=== PATIENT | male | born 1980 | race African-American/Black ===

== ENCOUNTER 2016-03-14 10:19 | Emergency (ER) | payer SELFPAY ==
[~2016-03-14] VITALS: Ht 177.8 cm; Wt 101.0 kg
[~2016-03-14 10:19] MED LIST: CITA20TA11 PO; DOCU-144 PO; HYDR-3498 PO; MIRT15TA5 PO; PANT40TA3 PO; QUET300T13 PO; SERT100T PO
[2016-03-14 10:35] VITALS: Ht 177.8 cm; Wt 101.0 kg
== END 2016-03-14 13:02 | disposition left against medical advice (07) ==
LOC: FTE 10:19
DX: Z53.21 Procedure and treatment not carried out due to patient leaving prior to being seen by health care provider (principal)

== ENCOUNTER 2016-08-24 12:40 | Inpatient (IN) | payer OTHER ==
[2016-08-23 14:24] VITALS: BMI 31.1
[2016-08-24] VITALS (18 sets, daily range): BP systolic 129–157; BP diastolic 70–89; PULSE 74–102; RESP 16–23; Ht 170.2 cm; Wt 99.0 kg
[~2016-08-24] VITALS: Ht 170.2 cm; Wt 99.0 kg
[2016-08-24] MEDS ORDERED: BUPIVACAINE 0.25% (MPF) 30 ML INJ ONE (12:45)
[2016-08-24] MEDS ORDERED: POLYMYXIN/BACITRACIN 1L IRRIG ONE (12:45)
[2016-08-24] MEDS ORDERED: CEFAZOLIN 2 GM/50 ML (PMX) 50 ML IVPB ONE (13:00)
[2016-08-24] MEDS ORDERED: SOD CHLORIDE 0.9% 1,000 ML IV ONE (13:00)
[2016-08-24] MEDS ORDERED: KETOROLAC 30 MG INJ ONE (13:35)
[2016-08-24] MEDS ORDERED: PROPOFOL 20 ML ONE (13:35)
[2016-08-24] MEDS ORDERED: METOCLOPRAMIDE 10 MG INJ ONE (13:35)
[2016-08-24] MEDS ORDERED: MIDAZOLAM 1 MG/ML 2 ML INJ ONE (13:35)
[2016-08-24] MEDS ORDERED: ONDANSETRON 4 MG INJ ONE (13:35)
[2016-08-24] MEDS ORDERED: ROCURONIUM 50 MG INJ ONE ×2 (13:35→15:33)
[2016-08-24] MEDS ORDERED: ROPIVACAINE 0.5 % 30 ML VIAL ONE (13:35)
[2016-08-24] MEDS ORDERED: GABA-526 PO (13:42)
[2016-08-24] MEDS ORDERED: QUET300T13 PO (13:42)
[2016-08-24] MEDS ORDERED: CLON0.5T4 PO (13:42)
[2016-08-24] MEDS ORDERED: FLUO40CA PO (13:42)
[2016-08-24] MEDS ORDERED: GABA300C16 PO (13:42)
[2016-08-24] MEDS ORDERED: FENTAnyl 50 MCG/ML VIAL ONE (13:50)
[2016-08-24] MEDS ORDERED: EPHEDrine SULFATE 50 MG/5 ML SYG ONE (14:09)
[2016-08-24] MEDS ORDERED: SUCCINYLCHOLINE CHLORIDE 100 MG/5 ML SYG IV ONE (14:23)
[2016-08-24] MEDS ORDERED: HYDROmorphONE 2 MG/ML SYG ONE (14:39)
[2016-08-24] MEDS ORDERED: METOCLOPRAMIDE 10 MG INJ IV PRN (15:00)
[2016-08-24] MEDS ORDERED: DIPHENHYDRAMINE 50 MG INJ IV PRN (15:00)
[2016-08-24] MEDS ORDERED: ONDANSETRON 4 MG INJ IV PRN (15:00)
[2016-08-24] MEDS ORDERED: HYDROmorphONE (0.2 MG/ML) 10ML SYG IV PRN ×2 (15:00)
[2016-08-24] MEDS ORDERED: MEPERIDINE 25 MG INJ IV PRN (15:00)
[2016-08-24] MEDS ORDERED: NEOSTIGMINE 3 MG/3 ML SYRINGE ONE (16:04)
[2016-08-24] MEDS ORDERED: GLYCOPYRROLATE 0.4 MG INJ ONE (16:04)
--- NOTE | 2016-08-24 16:13 | OPR ---
Date/Time of Note Date/Time of Note DATE: 08/24/16 TIME: 16:12 Operative Report Preoperative Diagnosis incarcerated incisional hernia parastomal hernia Postoperative Diagnosis same Operation/Procedure Performed open incisional incarcerated hernia open parastomal hernia repair synthetic mesh implantation biologic mesh implantation small bowel resection Surgeon: Michael WEAVER G. SEONG Aug 24, 2016 16:13
[2016-08-24] MEDS ORDERED: metroNIDAZOLE 500 MG/NS (PMX) 100 ML IVPB SCH (16:30)
[2016-08-24] MEDS ORDERED: morphine 2 MG INJ IV PRN (16:30)
--- NOTE | 2016-08-24 16:40 | OPR ---
DATE OF OPERATION: 08/24/2016 INDICATION: This is a 35-year-old male with a large incarcerated incisional hernia and a large para stomal hernia. He requests surgical repair. The risks, alternatives, benefits, and personnel were discussed with the patient. He expressed understanding and consented to the operation. PREOPERATIVE DIAGNOSIS: Parastomal hernia and incarcerated incisional hernia. POSTOPERATIVE DIAGNOSIS: Parastomal hernia and incarcerated incisional hernia. OPERATION PERFORMED: 1. Open incarcerated incisional hernia repair. 2. Open parastomal hernia repair. 3. Small bowel resection. 4. Synthetic mesh implantation. 5. ACell biologic mesh implantation. SURGEON: Jared Duran MD SPECIMEN: None. COMPLICATIONS: None. ANESTHESIA: General. DESCRIPTION OF PROCEDURE: The patient was taken to the OR and prepped and draped in the usual steri le fashion. A surgical timeout was performed. IV antibiotics were given. An incision was made ove r the midline incisional incarcerated hernia with a 10 blade. The cicatrix was resected with an ell iptical incision. Dissection cautery was down to the hernia. The fascial edges were freshened. Th e large hernia was then identified and reduced. Underlay 15 x [address] mesh was secured in place with #1 Prolene in interrupted fashion. There was good hemostasis. The fascia was then p rimarily closed with a running loop #1 PDS. There was good hemostasis. The skin was closed with int errupted 3-0 Vicryl and the skin was closed with skin kelechi. The wound was then covered. Attention was then paid to the parastomal hernia. The ileostomy was then re-resected down to the [facility]. The parastomal hernia was identified and reduced. The fascial defect was identified. This area was carefully lysed and dissected out. The ACell 6 layer was used with a keyhole incision and this was secured in place with interrupted 2-0 Vicryl. The ileostomy was then matured after resecting a bout 2 inches of the distal ileum, as it appeared scarred. The ileum was then matured with interrup yasmine 3-0 chromic. The small incision superior and inferior made around the stoma was then closed wit h running 2-0 Vicryl. Dry dressings and a stoma bag were placed. Dictated By: JARED DURAN MD SB/SHELLIE Conf#: [id number] [facility]#: [id number]
[2016-08-24] MEDS: HYDROmorphONE (0.2 MG/ML) 10ML SYG IV PRN ×3 (16:55→17:25)
[2016-08-24 16:59] LABS: ADD SCAN DIFF NO
[2016-08-24 17:00] LABS: BASOPHILS % 0.5 % (0.0-2.0); EOSINOPHILS # 0.4 10^3/ul (0.0-0.5); EOSINOPHILS % 4.2 % (0.0-7.0); HEMATOCRIT 40.6 % (42.0-52.0); HEMOGLOBIN 13.4 g/dl (14.0-18.0); LYMPHOCYTES # 1.6 10^3/ul (0.8-2.9); MEAN CORPUSCULAR HEMOGLOBIN 29.3 pg (29.0-33.0); MEAN CORPUSCULAR VOLUME 88.6 fl (82.0-101.0); MEAN PLATELET VOLUME 9.6 fl (7.4-10.4); MONOCYTE # 0.4 10^3/ul (0.3-0.9); MONOCYTES % 4.7 % (0.0-11.0); NEUTROPHIL # 6.3 10^3/ul (1.6-7.5); NEUTROPHILS % 72.1 % (39.0-77.0); PLATELET COUNT 229 10^3/UL (140-415); RED BLOOD COUNT 4.58 10^6/ul (4.70-6.10); RED CELL DISTRIBUTION WIDTH 13.4 % (11.5-14.5); WHITE BLOOD COUNT 8.8 10^3/ul (4.8-10.8)
[2016-08-24] MEDS ORDERED: CEFAZOLIN 2 GM/50 ML (PMX) 50 ML IVPB SCH (17:00)
[2016-08-24 17:39] LABS: ALBUMIN 4.5 g/dl (3.3-4.9); ALBUMIN/GLOBULIN RATIO 1.73; TOTAL PROTEIN 7.1 g/dl (6.1-8.1)
[2016-08-24 17:43] LABS: CALCIUM 8.8 mg/dl (8.4-10.2); CREATININE 1.14 mg/dl (0.61-1.24); POTASSIUM 4.3 mmol/L (3.5-5.1)
[2016-08-24] MEDS: D5W-0.45 NACL + KCL 20 MEQ 1,000 ML IV SCH (18:28)
[2016-08-24] MEDS: DIPHENHYDRAMINE 25 MG CAP PO PRN (18:28)
[2016-08-24] MEDS: morphine 4 MG/ML VIAL IV PRN ×3 (19:15→23:31)
--- NOTE | 2016-08-24 19:29 | HP ---
DATE OF ADMISSION: 08/24/2016 CHIEF COMPLAINT/HISTORY OF PRESENT ILLNESS: The patient is a 35-year-old gentleman well known to me from previous admission. The patient has history of ulcerative colitis status post exploratory lap arotomy and lysis of adhesion, completion of prostatectomy and ileostomy with Dr. Duran. The patient w as seen by Dr. Duran as an outpatient and was diagnosed with large incarcerated incisional hernia and a large parastomal hernia. The patient was taken to OR and underwent open incarcerated incisional h ernia repair, open parastomal hernia repair, small bowel resection. The patient postoperatively had significant pain and is being admitted for further evaluation and management. Patient denied any ch est pain or shortness of breath. No resting leg pain. Patient does not have any focal weakness. N o reported fever or chills since surgery. No reported vomiting. The patient does report itchiness, for which he is requesting Benadryl. PAST MEDICAL HISTORY: The patient's also significant for anxiety and depression. PAST SURGICAL HISTORY: As stated above. In addition, the patient is status post ileostomy reversal and ileorectal anastomosis. ALLERGIES: NONE. SOCIAL HISTORY: No smoking, no alcohol. PHYSICAL EXAMINATION: GENERAL: Found the patient to be alert and responsive. VITAL SIGNS: Temperature 98.4, pulse 74, respirations 20, blood pressure 129/72, O2 saturation 99 o n room air. HEENT: No eye discharge or redness. Extraocular movements intact. Oropharynx clear. NECK: Supple. No mass, no thyromegaly. LUNGS: Clear to auscultation. CARDIOVASCULAR: S1, S2 normal. No murmur. ABDOMEN: The patient is status post recent surgery. EXTREMITIES: No leg edema. Pedal pulses palpable. SKIN: Without rash. NEUROLOGIC: The patient is awake, alert with no gross focal deficit. IMPRESSION: 1. Parastomal hernia and incarcerated incisional hernia status post open incarcerated incisional he rnia repair and opened parastomal hernia repair. 2. History of ulcerative colitis status post exploratory laparotomy and lysis of adhesions, complet ion of proctectomy and ileostomy and subsequently ileostomy reversal with ileorectal anastomosis. 3. Depression. PLAN: Patient admitted on medical floor. Patient will be started on clear liquid diet and will be given IV fluids and IV cefazolin and IV Flagyl. We will continue Prozac, Neurontin, Seroquel and c lonidine as before. Will use SCD for deep venous thrombosis prophylaxis. The patient will be on Nor co and morphine for pain control. We will continue to follow him from a medical standpoint. LABORATORY DATA: Lab evaluation done today revealed WBC 8.8, hemoglobin 13.4, platelet 229, sodium 138, potassium 4.3, BUN 16, creatinine 1.1. Liver enzymes normal. Dictated By: MYLES CLARK/SHELLIE Conf#: [id number] DID#: [id number]
[2016-08-24] MEDS ORDERED: GABAPENTIN 300 MG CAP PO SCH ×2 (21:00)
[2016-08-24] MEDS: metroNIDAZOLE 500 MG/NS (PMX) 100 ML IVPB SCH (21:25)
[2016-08-24] MEDS: clonAZEPAM 0.5 MG TAB PO SCH (21:26)
[2016-08-24] MEDS: GABAPENTIN 300 MG CAP PO SCH (21:26)
[2016-08-24] MEDS: QUETIAPINE 100 MG TAB PO SCH (21:26)
[2016-08-24] MEDS: CEFAZOLIN 2 GM/50 ML (PMX) 50 ML IVPB SCH (23:31)
[2016-08-25 00:20] VITALS: BP 132/78; PULSE 94; RESP 18
[2016-08-25] MEDS: D5W-0.45 NACL + KCL 20 MEQ 1,000 ML IV SCH ×3 (01:37→22:13)
[2016-08-25] MEDS: morphine 4 MG/ML VIAL IV PRN ×4 (03:56→10:28)
[2016-08-25 05:09] LABS: ADD SCAN DIFF NO
[2016-08-25 05:21] LABS: BASOPHILS % 0.3 % (0.0-2.0); EOSINOPHILS # 0.1 10^3/ul (0.0-0.5); EOSINOPHILS % 1.9 % (0.0-7.0); HEMATOCRIT 39.1 % (42.0-52.0); HEMOGLOBIN 12.7 g/dl (14.0-18.0); LYMPHOCYTES # 0.8 10^3/ul (0.8-2.9); LYMPHOCYTES % 11.5 % (15.0-51.0); MEAN CORPUSCULAR HEMOGLOBIN 28.9 pg (29.0-33.0); MEAN CORPUSCULAR HGB CONC 32.5 g/dl (32.0-37.0); MEAN CORPUSCULAR VOLUME 88.9 fl (82.0-101.0); MEAN PLATELET VOLUME 9.6 fl (7.4-10.4); MONOCYTE # 0.5 10^3/ul (0.3-0.9); MONOCYTES % 7.5 % (0.0-11.0); NEUTROPHIL # 5.7 10^3/ul (1.6-7.5); NEUTROPHILS % 78.4 % (39.0-77.0); PLATELET COUNT 217 10^3/UL (140-415); RED CELL DISTRIBUTION WIDTH 13.3 % (11.5-14.5); WHITE BLOOD COUNT 7.2 10^3/ul (4.8-10.8)
[2016-08-25] MEDS: metroNIDAZOLE 500 MG/NS (PMX) 100 ML IVPB SCH ×2 (05:45→14:51)
[2016-08-25 05:46] LABS: ALBUMIN 4.3 g/dl (3.3-4.9); ALBUMIN/GLOBULIN RATIO 1.65; BILIRUBIN,INDIRECT 0.2 mg/dl (0-1.1); BILIRUBIN,TOTAL 0.2 mg/dl (0.2-1.3); CALCIUM 8.7 mg/dl (8.4-10.2); CREATININE 0.96 mg/dl (0.61-1.24); POTASSIUM 3.8 mmol/L (3.5-5.1); TOTAL PROTEIN 6.9 g/dl (6.1-8.1)
[2016-08-25] MEDS: CEFAZOLIN 2 GM/50 ML (PMX) 50 ML IVPB SCH ×2 (06:55→14:51)
[2016-08-25 08:15] VITALS: BP 118/66; RESP 20
[2016-08-25] MEDS: clonAZEPAM 0.5 MG TAB PO SCH ×2 (08:31→20:44)
[2016-08-25] MEDS: GABAPENTIN 300 MG CAP PO SCH ×4 (08:31→20:45)
[2016-08-25] MEDS: FLUOXETINE 20 MG CAP PO SCH (08:31)
[2016-08-25 12:00] VITALS: BP 122/72; PULSE 89; RESP 17
[2016-08-25] MEDS: HYDROmorphONE 1 MG/ML SYG IV PRN ×4 (12:03→22:42)
--- NOTE | 2016-08-25 12:31 | PN ---
Date/Time of Note Date/Time of Note DATE: 08/25/16 TIME: 12:30 Assessment/Plan VTE Prophylaxis VTE Prophylaxis Intervention: other Lines/Catheters IV Catheter Type (from Nrs): Peripheral IV Assessment/Plan Chief Complaint/Hosp Course 1. Parastomal hernia and incarcerated incisional hernia status post open incarcerated incisional hernia repair and opened parastomal hernia repair. 2. History of ulcerative colitis status post exploratory laparotomy and lysis of adhesions, completion of proctectomy and ileostomy and subsequently ileostomy reversal with ileorectal anastomosis. 3. Depression. Problems: Subjective 24 Hr Interval Summary Free Text/Dictation Patient still has a fair amount of pain Exam/Review of Systems Vital Signs Vitals Vital Signs Date Time Temp Pulse Resp B/P Pulse Ox O2 Delivery O2 Flow Rate FiO2 08/25/16 08:15 98.2 86 20 118/66 98 08/25/16 00:20 Nasal Cannula 2.0 Intake and Output 08/24/16 08/24/16 08/25/16 15:00 23:00 07:00 Intake Total 1800 ml 1700 ml Output Total 170 ml 800 ml Balance 1630 ml 900 ml Exam Constitutional: well developed Head: atraumatic, normocephalic Neck: supple Respiratory: clear to auscultation Cardiovascular: regular rate and rhythm Gastrointestinal: non-tender, soft Extremities: normal pulses Results Result Diagram: 08/25/16 0420 08/25/16 0420 Results 24 hrs Laboratory Tests Test 08/24/16 16:45 08/25/16 04:20 White Blood Count 8.8 7.2 Red Blood Count 4.58 L 4.40 L Hemoglobin 13.4 L 12.7 L Hematocrit 40.6 L 39.1 L Mean Corpuscular Volume 88.6 88.9 Mean Corpuscular Hemoglobin 29.3 28.9 L Mean Corpuscular Hemoglobin Concent 33.0 32.5 Red Cell Distribution Width 13.4 13.3 Platelet Count 229 217 Mean Platelet Volume 9.6 # 9.6 Neutrophils % 72.1 78.4 H Lymphocytes % 18.0 11.5 L Monocytes % 4.7 7.5 Eosinophils % 4.2 1.9 Basophils % 0.5 0.3 Nucleated Red Blood Cells % 0.0 0.0 Neutrophils # 6.3 5.7 Lymphocytes # 1.6 0.8 Monocytes # 0.4 0.5 Eosinophils # 0.4 0.1 Basophils # 0.0 0.0 Nucleated Red Blood Cells # 0.0 0.0 Sodium Level 138 137 Potassium Level 4.3 3.8 Chloride Level 108 104 Carbon Dioxide Level 22 23 Anion Gap 12 14 Blood Urea Nitrogen 16 12 Creatinine 1.14 0.96 Glucose Level 112 111 Calcium Level 8.8 8.7 Total Bilirubin 0.0 L 0.2 Direct Bilirubin 0.00 0.00 Indirect Bilirubin 0.0 0.2 Aspartate Amino Transf (AST/SGOT) 29 26 Alanine Aminotransferase (ALT/SGPT) 51 49 Alkaline Phosphatase 78 63 Total Protein 7.1 6.9 Albumin 4.5 4.3 Globulin 2.60 2.60 Albumin/Globulin Ratio 1.73 1.65 Medications Medications Current Medications Acetaminophen/ Hydrocodone Bitart 1 tab 1 tab Q6H PRN PO PAIN LEVEL 6-10; Start 08/24/16 at 16:30 Potassium Chloride/Dextrose/ Sod Cl 1,000 ml @ 100 mls/hr Q10H IV Last administered on 08/25/16 01:37; Admin Dose 100 MLS/HR; Start 08/24/16 at 16:13 Metronidazole 100 ml @ 100 mls/hr Q8H IVPB Last administered on 08/25/16 05: 45; Admin Dose 100 MLS/HR; Start 08/24/16 at 22:00; Stop 08/25/16 at 21:59 Cefazolin Sodium/ Dextrose (Ancef 2 Gm/50 ml (Pmx)) 50 ml @ 100 mls/hr Q8H IVPB Last administered on 08/25/16 06:55; Admin Dose 100 MLS/HR; Start at 23:00; Stop 08/25/16 at 22:59 Clonazepam (Klonopin) 0.5 mg BID PO Last administered on 08/25/16 08:31; Admin Dose 0.5 MG; Start 08/24/16 at 21:00 Fluoxetine HCl (Prozac) 40 mg DAILY PO Last administered on 08/25/16 08:31; Admin Dose 40 MG; Start 08/25/16 at 09:00 Quetiapine Fumarate (Seroquel) 300 mg HS PO Last administered on 08/24/16 21: 26; Admin Dose 300 MG; Start 08/24/16 at 21:00 Diphenhydramine HCl (Benadryl) 25 mg Q6H PRN PO ITCHING Last administered on 18:28; Admin Dose 25 MG; Start 08/24/16 at 18:30 Gabapentin (Neurontin) 300 mg QID PO Last administered on 08/25/16 08:31; Admin Dose 300 MG; Start 08/24/16 at 21:00 Hydromorphone HCl (Dilaudid) 1 mg Q4H PRN IV PAIN Last administered on 12:03; Admin Dose 1 MG; Start 08/25/16 at 12:00 JUANITA EASON Aug 25, 2016 12:31
[2016-08-25] MEDS: ONDANSETRON 4 MG INJ IV PRN (14:45)
--- NOTE | 2016-08-25 16:14 | PN ---
DATE: 08/25/2016 FOLLOWUP Postoperative day #1. SUBJECTIVE: Complains of abdominal pain too much and some distention. Today is postop day #1. The procedure was: 1. Repair of incarcerated incisional ventral hernia. 2. Repair of the parastomal hernia. OBJECTIVE: GENERAL: Awake, alert, oriented x3. VITAL SIGNS: Temperature 98.2, heart rate 94 to 86, respirations 18 to 20, blood pressure 118/66, saturation 98% on room air. LABORATORY: WBC 7200 with 78% segmented, hemoglobin 12.7, hematocrit 39.1. Chemistry is within normal limits today. ABDOMEN: Very distended. Bowel sounds present. Ileostomy: There is some liquid greenish fluid in the ileostomy bag. No nausea, no vomiting. EXTREMITIES: No calf tenderness. ASSESSMENT AND PLAN: The patient is postoperative day #1 for operation of incisional hernia repair with mesh and also application of mesh for the parastomal hernia at the site of ileostomy. Apparently the morphine was not enough to help the patient with pain, so it was discontinued and Dilaudid was started for the patient. The patient has been out of bed a little bit and has been urinating without a problem. PLAN: Continue Dilaudid, If he continues to have more pain they are going to start him on Toradol. Dictated By: MYLENE GRECO/SHELLIE Conf#: [id number] DID#: [id number] MTDD
[2016-08-25] MEDS: HYDROCODONE/APAP (5/325) TAB PO PRN (17:22)
[2016-08-25 19:22] VITALS: BP 142/96; RESP 22
[2016-08-25] MEDS: QUETIAPINE 100 MG TAB PO SCH (20:43)
[2016-08-26] MEDS: HYDROmorphONE 1 MG/ML SYG IV PRN ×7 (01:17→22:44)
[2016-08-26] MEDS: DIPHENHYDRAMINE 25 MG CAP PO PRN (02:18)
[2016-08-26] MEDS: HYDROCODONE/APAP (5/325) TAB PO PRN ×3 (02:18→15:03)
[2016-08-26] MEDS: D5W-0.45 NACL + KCL 20 MEQ 1,000 ML IV SCH (06:06)
[2016-08-26 08:05] VITALS: BP 111/66; RESP 22
[2016-08-26] MEDS: GABAPENTIN 300 MG CAP PO SCH ×4 (08:15→20:16)
[2016-08-26] MEDS: clonAZEPAM 0.5 MG TAB PO SCH ×2 (08:15→20:16)
[2016-08-26] MEDS: FLUOXETINE 20 MG CAP PO SCH (08:16)
--- NOTE | 2016-08-26 12:26 | PN ---
Date/Time of Note Date/Time of Note DATE: 08/26/16 TIME: 12:25 Assessment/Plan VTE Prophylaxis VTE Prophylaxis Intervention: other Lines/Catheters IV Catheter Type (from Nrsg): Peripheral IV Assessment/Plan Chief Complaint/Hosp Course 1. Parastomal hernia and incarcerated incisional hernia status post open incarcerated incisional hernia repair and opened parastomal hernia repair. 2. History of ulcerative colitis status post exploratory laparotomy and lysis of adhesions, completion of proctectomy and ileostomy and subsequently ileostomy reversal with ileorectal anastomosis. 3. Depression. Problems: Subjective 24 Hr Interval Summary Free Text/Dictation Patient has pain at site of surgery Exam/Review of Systems Vital Signs Vitals Vital Signs Date Time Temp Pulse Resp B/P Pulse Ox O2 Delivery O2 Flow Rate FiO2 08/26/16 08:05 98.1 98 22 111/66 100 08/25/16 12:00 Room Air 08/25/16 00:20 2.0 Intake and Output 08/25/16 08/25/16 08/26/16 15:00 23:00 07:00 Intake Total 50 ml 1750 ml 2020 ml Output Total 1300 ml 700 ml Balance 50 ml 450 ml 1320 ml Exam Constitutional: well developed Head: atraumatic, normocephalic Neck: supple Respiratory: clear to auscultation Cardiovascular: regular rate and rhythm Gastrointestinal: non-tender, soft Extremities: normal pulses Results Result Diagram: 08/25/16 0420 08/25/16 0420 Results 24 hrs Laboratory Tests Test 08/26/16 06:41 Lab Scanned Report REFERENCE LAB Medications Medications Current Medications Acetaminophen/ Hydrocodone Bitart 1 tab 1 tab Q6H PRN PO PAIN LEVEL 6-10 Last administered on 08/26/16 08:16; Admin Dose 1 TAB; Start 08/24/16 at 16:30 Potassium Chloride/Dextrose/ Sod Cl (D5-1/2ns + KCl 20 Meq) 1,000 ml @ 100 mls/ hr Q10H IV Last administered on 08/26/16 06:06; Admin Dose 100 MLS/HR; Start 08/24/16 at 16:13 Clonazepam (Klonopin) 0.5 mg BID PO Last administered on 08/26/16 08:15; Admin Dose 0.5 MG; Start 08/24/16 at 21:00 Fluoxetine HCl (Prozac) 40 mg DAILY PO Last administered on 08/26/16 08:16; Admin Dose 40 MG; Start 08/25/16 at 09:00 Quetiapine Fumarate (Seroquel) 300 mg HS PO Last administered on 08/25/16 20: 43; Admin Dose 300 MG; Start 08/24/16 at 21:00 Diphenhydramine HCl (Benadryl) 25 mg Q6H PRN PO ITCHING Last administered on 02:18; Admin Dose 25 MG; Start 08/24/16 at 18:30 Gabapentin (Neurontin) 300 mg QID PO Last administered on 08/26/16 08:15; Admin Dose 300 MG; Start 08/24/16 at 21:00 Ondansetron HCl (Zofran Inj) 4 mg Q6H PRN IV NAUSEA AND/OR VOMITING Last administered on 08/25/16 14:45; Admin Dose 4 MG; Start 08/25/16 at 15:00 Hydromorphone HCl (Dilaudid) 1 mg Q3 PRN IV PAIN Last administered on 10:45; Admin Dose 1 MG; Start 08/25/16 at 22:00 JUANITA EASON Aug 26, 2016 12:26
[2016-08-26] MEDS ORDERED: KETOROLAC 30 MG INJ IV PRN (15:30)
[2016-08-26 20:09] VITALS: BP 140/92; RESP 18
[2016-08-26] MEDS: QUETIAPINE 100 MG TAB PO SCH (20:28)
[2016-08-26] MEDS: ONDANSETRON 4 MG INJ IV PRN (22:44)
[2016-08-26] MEDS: KETOROLAC 30 MG INJ IV SCH (23:10)
[2016-08-27] MEDS: HYDROmorphONE 1 MG/ML SYG IV PRN ×8 (01:36→21:45)
[2016-08-27] MEDS: KETOROLAC 30 MG INJ IV SCH ×2 (04:34→08:14)
[2016-08-27 05:23] LABS: ADD SCAN DIFF NO
[2016-08-27 05:27] LABS: BASOPHILS % 0.3 % (0.0-2.0); EOSINOPHILS # 0.3 10^3/ul (0.0-0.5); EOSINOPHILS % 3.9 % (0.0-7.0); HEMATOCRIT 36.7 % (42.0-52.0); HEMOGLOBIN 12.4 g/dl (14.0-18.0); LYMPHOCYTES # 1.5 10^3/ul (0.8-2.9); MEAN CORPUSCULAR HEMOGLOBIN 29.8 pg (29.0-33.0); MEAN CORPUSCULAR HGB CONC 33.8 g/dl (32.0-37.0); MEAN CORPUSCULAR VOLUME 88.2 fl (82.0-101.0); MEAN PLATELET VOLUME 9.8 fl (7.4-10.4); MONOCYTE # 0.6 10^3/ul (0.3-0.9); MONOCYTES % 7.9 % (0.0-11.0); NEUTROPHIL # 4.5 10^3/ul (1.6-7.5); NEUTROPHILS % 65.6 % (39.0-77.0); PLATELET COUNT 226 10^3/UL (140-415); RED BLOOD COUNT 4.16 10^6/ul (4.70-6.10); RED CELL DISTRIBUTION WIDTH 13.3 % (11.5-14.5); WHITE BLOOD COUNT 6.9 10^3/ul (4.8-10.8)
--- NOTE | 2016-08-27 07:40 | PN ---
DATE: 08/26/2016 Status post repair of the incisional hernia and also repair of the parastomal hernia. SUBJECTIVE: Patient complaining of too much pain in the right side. but is not associated with nausea and vomiting. OBJECTIVE: VITAL SIGNS: Temperature 98.1, heart rate 88, respirations 22, blood pressure 101/66, saturation 100% on room air. LABORATORY: No labs done today. GENERAL: The patient is alert and awake. ABDOMEN: Appears very distended. Bowel is a little bit hypoactive 2+/4+, but the ileostomy is functioning. There is liquid stool and also formed stool, patient is tender around the incision lines. EXTREMITIES: Legs, no calf tenderness. ASSESSMENT AND PLAN: Status post laparotomy and repair of the ventral incisional hernia with mesh and parastomal hernia with mesh. Ileostomy is functioning. The patient does not have any nausea or vomiting and is tolerating diet so far, complaining of too much pain. PLAN: Patient is on Dilaudid every 3 hours. We are going to add Toradol 30 mg IV q.6h. around the clock to help ease off the pain. Dictated By: MYLENE TRAN MD PS/NTS Conf#: [id number] DID#: [id number] MTDD
[2016-08-27] MEDS: GABAPENTIN 300 MG CAP PO SCH ×4 (08:12→20:45)
[2016-08-27] MEDS: clonAZEPAM 0.5 MG TAB PO SCH ×2 (08:12→20:45)
[2016-08-27] MEDS: FLUOXETINE 20 MG CAP PO SCH (08:13)
[2016-08-27] MEDS: DIPHENHYDRAMINE 25 MG CAP PO PRN ×2 (08:13→18:56)
[2016-08-27 08:45] VITALS: BP 108/78; RESP 18
[2016-08-27] MEDS: HYDROCODONE/APAP (5/325) TAB PO PRN (08:55)
--- NOTE | 2016-08-27 09:24 | PN ---
Date/Time of Note Date/Time of Note DATE: 08/27/16 TIME: 09:21 Assessment/Plan VTE Prophylaxis VTE Prophylaxis Intervention: SCD's Lines/Catheters IV Catheter Type (from Nrsg): Saline Lock Urinary Cath still in place: No Assessment/Plan Chief Complaint/Hosp Course s/p open incisional hernia repair with mesh and parastomal hernia repair with biologic Problems: Assessment/Plan continue care Subjective 24 Hr Interval Summary Free Text/Dictation no issues, low grade fever Exam/Review of Systems Vital Signs Vitals Vital Signs Date Time Temp Pulse Resp B/P Pulse Ox O2 Delivery O2 Flow Rate FiO2 08/27/16 08:45 97.7 108 18 108/78 97 08/25/16 12:00 Room Air 08/25/16 00:20 2.0 Intake and Output 08/26/16 08/26/16 08/27/16 15:00 23:00 07:00 Intake Total 1900 ml 1080 ml Output Total 1900 ml 1950 ml Balance 0 ml -870 ml Exam c/d/i Results Result Diagram: 08/27/16 0453 08/25/16 0420 Results 24 hrs Laboratory Tests Test 08/27/16 04:53 White Blood Count 6.9 Red Blood Count 4.16 L Hemoglobin 12.4 L Hematocrit 36.7 L Mean Corpuscular Volume 88.2 Mean Corpuscular Hemoglobin 29.8 Mean Corpuscular Hemoglobin Concent 33.8 Red Cell Distribution Width 13.3 Platelet Count 226 Mean Platelet Volume 9.8 Neutrophils % 65.6 Lymphocytes % 22.0 Monocytes % 7.9 Eosinophils % 3.9 Basophils % 0.3 Nucleated Red Blood Cells % 0.0 Neutrophils # 4.5 Lymphocytes # 1.5 Monocytes # 0.6 Eosinophils # 0.3 Basophils # 0.0 Nucleated Red Blood Cells # 0.0 Medications Medications Current Medications Acetaminophen/ Hydrocodone Bitart ([place] (5/325)) 1 tab Q6H PRN PO PAIN LEVEL 6 -10 Last administered on 08/27/16 08:55; Admin Dose 1 TAB; Start 08/24/16 at 16 :30 Clonazepam (Klonopin) 0.5 mg BID PO Last administered on 08/27/16 08:12; Admin Dose 0.5 MG; Start 08/24/16 at 21:00 Fluoxetine HCl (Prozac) 40 mg DAILY PO Last administered on 08/27/16 08:13; Admin Dose 40 MG; Start 08/25/16 at 09:00 Quetiapine Fumarate (Seroquel) 300 mg HS PO Last administered on 08/26/16 20: 28; Admin Dose 300 MG; Start 08/24/16 at 21:00 Diphenhydramine HCl (Benadryl) 25 mg Q6H PRN PO ITCHING Last administered on 08:13; Admin Dose 25 MG; Start 08/24/16 at 18:30 Gabapentin (Neurontin) 300 mg QID PO Last administered on 08/27/16 08:12; Admin Dose 300 MG; Start 08/24/16 at 21:00 Ondansetron HCl (Zofran Inj) 4 mg Q6H PRN IV NAUSEA AND/OR VOMITING Last administered on 08/26/16 22:44; Admin Dose 4 MG; Start 08/25/16 at 15:00 Hydromorphone HCl (Dilaudid) 1 mg Q3 PRN IV PAIN Last administered on 06:36; Admin Dose 1 MG; Start 08/25/16 at 22:00 Ketorolac Tromethamine (Toradol) 30 mg Q6H IV Last administered on 08/27/16 08 :14; Admin Dose 30 MG; Start 08/26/16 at 21:30; Stop 08/29/16 at 21:29 Michael WEAVER Aug 27, 2016 09:24
[2016-08-27] MEDS: HYDROCODONE/APAP (10/325) TAB PO PRN ×2 (14:54→20:46)
--- NOTE | 2016-08-27 17:07 | PN ---
Date/Time of Note Date/Time of Note DATE: 08/27/16 TIME: 17:04 Assessment/Plan VTE Prophylaxis VTE Prophylaxis Intervention: SCD's Lines/Catheters IV [facility] Type [facility]from [facility] Saline Lock Urinary Cath still in place: No Assessment/Plan Chief Complaint/Hosp Course pt tolerates diet well, denies N/V, complains of abd pain. Problems: Assessment/Plan 1. Parastomal hernia and incarcerated incisional hernia status post open incarcerated incisional hernia repair and opened parastomal hernia repair. Continue Sun and Dilaudid for pain. Advance diet per surgery. 2. History of ulcerative colitis status post exploratory laparotomy and lysis of adhesions, completion of proctectomy and end ileostomy. 3. Depression. Further recommendations based on clinical course. Plan of care discussed with Dr. Coley. Exam/Review of Systems Vital Signs Vitals Vital Signs Date Time Temp Pulse Resp B/P Pulse Ox O2 Delivery O2 Flow Rate FiO2 08/27/16 08:45 97.7 108 18 108/78 97 08/25/16 12:00 Room Air 08/25/16 00:20 2.0 Intake and Output 08/26/16 08/26/16 08/27/16 15:00 23:00 07:00 Intake Total 1900 ml 1080 ml Output Total 1900 ml 1950 ml Balance 0 ml -870 ml Exam Constitutional: alert, oriented Head: normocephalic Neck: supple Respiratory: normal air movement Cardiovascular: nl pulses Gastrointestinal: non-tender, other (colostomy, surgical incision), soft Extremities: normal pulses Neurological: nl mental status Skin: nl turgor Results Result Diagram: 08/27/16 0453 08/25/16 0420 Results 24 hrs Laboratory Tests Test 08/27/16 04:53 White Blood Count 6.9 Red Blood Count 4.16 L Hemoglobin 12.4 L Hematocrit 36.7 L Mean Corpuscular Volume 88.2 Mean Corpuscular Hemoglobin 29.8 Mean Corpuscular Hemoglobin Concent 33.8 Red Cell Distribution Width 13.3 Platelet Count 226 Mean Platelet Volume 9.8 Neutrophils % 65.6 Lymphocytes % 22.0 Monocytes % 7.9 Eosinophils % 3.9 Basophils % 0.3 Nucleated Red Blood Cells % 0.0 Neutrophils # 4.5 Lymphocytes # 1.5 Monocytes # 0.6 Eosinophils # 0.3 Basophils # 0.0 Nucleated Red Blood Cells # 0.0 Medications Medications Current Medications Clonazepam (Klonopin) 0.5 mg BID PO Last administered on 08/27/16 08:12; Admin Dose 0.5 MG; Start 08/24/16 at 21:00 Fluoxetine HCl (Prozac) 40 mg DAILY PO Last administered on 08/27/16 08:13; Admin Dose 40 MG; Start 08/25/16 at 09:00 Quetiapine Fumarate (Seroquel) 300 mg HS PO Last administered on 08/26/16 20: 28; Admin Dose 300 MG; Start 08/24/16 at 21:00 Diphenhydramine HCl (Benadryl) 25 mg Q6H PRN PO ITCHING Last administered on 08:13; Admin Dose 25 MG; Start 08/24/16 at 18:30 Gabapentin (Neurontin) 300 mg QID PO Last administered on 08/27/16 12:33; Admin Dose 300 MG; Start 08/24/16 at 21:00 Ondansetron HCl (Zofran Inj) 4 mg Q6H PRN IV NAUSEA AND/OR VOMITING Last administered on 08/26/16 22:44; Admin Dose 4 MG; Start 08/25/16 at 15:00 Hydromorphone HCl (Dilaudid) 1 mg Q3 PRN IV PAIN Last administered on 15:47; Admin Dose 1 MG; Start 08/25/16 at 22:00 Acetaminophen/ Hydrocodone Bitart ([place] (10/325)) 1 tab Q6H PRN PO PAIN Last administered on 08/27/16 14:54; Admin Dose 1 TAB; Start 08/27/16 at 09:30 ROSALIND ESPINAL Aug 27, 2016 17:07
[2016-08-27 19:51] VITALS: BP 132/85; RESP 20
[2016-08-27] MEDS: QUETIAPINE 100 MG TAB PO SCH (20:45)
[2016-08-28] MEDS: HYDROmorphONE 1 MG/ML SYG IV PRN ×7 (00:42→21:06)
[2016-08-28] MEDS: HYDROCODONE/APAP (10/325) TAB PO PRN ×4 (02:42→21:24)
[2016-08-28 05:20] LABS: ADD SCAN DIFF NO
[2016-08-28 05:21] LABS: BASOPHILS % 0.5 % (0.0-2.0); EOSINOPHILS # 0.7 10^3/ul (0.0-0.5); HEMATOCRIT 34.9 % (42.0-52.0); HEMOGLOBIN 11.9 g/dl (14.0-18.0); LYMPHOCYTES # 1.9 10^3/ul (0.8-2.9); LYMPHOCYTES % 29.5 % (15.0-51.0); MEAN CORPUSCULAR HGB CONC 34.1 g/dl (32.0-37.0); MEAN CORPUSCULAR VOLUME 87.9 fl (82.0-101.0); MEAN PLATELET VOLUME 9.3 fl (7.4-10.4); MONOCYTE # 0.6 10^3/ul (0.3-0.9); MONOCYTES % 8.6 % (0.0-11.0); NEUTROPHIL # 3.3 10^3/ul (1.6-7.5); NEUTROPHILS % 51.1 % (39.0-77.0); PLATELET COUNT 238 10^3/UL (140-415); RED BLOOD COUNT 3.97 10^6/ul (4.70-6.10); RED CELL DISTRIBUTION WIDTH 13.1 % (11.5-14.5); WHITE BLOOD COUNT 6.5 10^3/ul (4.8-10.8)
[2016-08-28 05:51] LABS: CALCIUM 8.5 mg/dl (8.4-10.2); CREATININE 1.02 mg/dl (0.61-1.24); POTASSIUM 3.9 mmol/L (3.5-5.1)
[2016-08-28 08:25] VITALS: BP 132/77; RESP 20
[2016-08-28] MEDS: FLUOXETINE 20 MG CAP PO SCH (09:05)
[2016-08-28] MEDS: clonAZEPAM 0.5 MG TAB PO SCH ×2 (09:06→20:40)
[2016-08-28] MEDS: GABAPENTIN 300 MG CAP PO SCH ×4 (09:06→20:40)
[2016-08-28] MEDS: DIPHENHYDRAMINE 25 MG CAP PO PRN (10:36)
--- NOTE | 2016-08-28 13:38 | PN ---
Date/Time of Note Date/Time of Note DATE: 08/28/16 TIME: 13:35 Assessment/Plan VTE Prophylaxis VTE Prophylaxis Intervention: SCD's Lines/Catheters IV Catheter Type (from [facility]): Saline Lock Urinary Cath still in place: No Assessment/Plan Chief Complaint/Hosp Course s/p open incisional hernia repair with mesh and parastomal hernia repair with biologic Problems: Assessment/Plan dc home tomorrow Subjective 24 Hr Interval Summary Free Text/Dictation doing well, no issues Exam/Review of Systems Vital Signs Vitals Vital Signs Date Time Temp Pulse Resp B/P Pulse Ox O2 Delivery O2 Flow Rate FiO2 08/28/16 08:25 98.3 92 20 132/77 96 08/25/16 12:00 Room Air 08/25/16 00:20 2.0 Intake and Output 08/27/16 08/27/16 08/28/16 15:00 23:00 07:00 Intake Total 960 ml 1100 ml Output Total 400 ml Balance 560 ml 1100 ml Exam c/d/i Results Result Diagram: 08/28/16 0440 08/28/16 0440 Results 24 hrs Laboratory Tests Test 08/28/16 04:40 White Blood Count 6.5 Red Blood Count 3.97 L Hemoglobin 11.9 L Hematocrit 34.9 L Mean Corpuscular Volume 87.9 Mean Corpuscular Hemoglobin 30.0 Mean Corpuscular Hemoglobin Concent 34.1 Red Cell Distribution Width 13.1 Platelet Count 238 Mean Platelet Volume 9.3 Neutrophils % 51.1 Lymphocytes % 29.5 Monocytes % 8.6 Eosinophils % 10.0 H Basophils % 0.5 Nucleated Red Blood Cells % 0.0 Neutrophils # 3.3 Lymphocytes # 1.9 Monocytes # 0.6 Eosinophils # 0.7 H Basophils # 0.0 Nucleated Red Blood Cells # 0.0 Sodium Level 136 Potassium Level 3.9 Chloride Level 104 Carbon Dioxide Level 25 Anion Gap 11 Blood Urea Nitrogen 14 Creatinine 1.02 Glucose Level 91 Calcium Level 8.5 Medications Medications Current Medications Clonazepam (Klonopin) 0.5 mg BID PO Last administered on 08/28/16 09:06; Admin Dose 0.5 MG; Start 08/24/16 at 21:00 Fluoxetine HCl (Prozac) 40 mg DAILY PO Last administered on 08/28/16 09:05; Admin Dose 40 MG; Start 08/25/16 at 09:00 Quetiapine Fumarate (Seroquel) 300 mg HS PO Last administered on 08/27/16 20: 45; Admin Dose 300 MG; Start 08/24/16 at 21:00 Diphenhydramine HCl (Benadryl) 25 mg Q6H PRN PO ITCHING Last administered on 10:36; Admin Dose 25 MG; Start 08/24/16 at 18:30 Gabapentin (Neurontin) 300 mg QID PO Last administered on 08/28/16 09:06; Admin Dose 300 MG; Start 08/24/16 at 21:00 Ondansetron HCl (Zofran Inj) 4 mg Q6H PRN IV NAUSEA AND/OR VOMITING Last administered on 08/26/16 22:44; Admin Dose 4 MG; Start 08/25/16 at 15:00 Hydromorphone HCl (Dilaudid) 1 mg Q3 PRN IV PAIN Last administered on 12:56; Admin Dose 1 MG; Start 08/25/16 at 22:00 Acetaminophen/ Hydrocodone Bitart ([place] (10/325)) 1 tab Q6H PRN PO PAIN Last administered on 08/28/16 09:06; Admin Dose 1 TAB; Start 08/27/16 at 09:30 Michael WEAVER Aug 28, 2016 13:38
--- NOTE | 2016-08-28 13:50 | PN ---
Date/Time of Note Date/Time of Note DATE: 08/28/16 TIME: 13:46 Assessment/Plan VTE Prophylaxis VTE Prophylaxis Intervention: SCD's Lines/Catheters IV [facility]ter [facility]from [facility] Lock Urinary Cath still in place: No Assessment/Plan Chief Complaint/Hosp Course Patient's complains of abdominal pain requiring IV Dilaudid, no nausea vomiting. Assessment/Plan 1. Parastomal hernia and incarcerated incisional hernia, status post open incarcerated incisional hernia repair and opened parastomal hernia repair. 2. History of ulcerative colitis status post exploratory laparotomy and lysis of adhesions, completion of proctectomy and end ileostomy. 3. Depression. Continue Prozac. Further recommendations based on clinical course. Plan of care discussed with Dr. Coley. Problems: Exam/Review of Systems Vital Signs Vitals Vital Signs Date Time Temp Pulse Resp B/P Pulse Ox O2 Delivery O2 Flow Rate FiO2 08/28/16 08:25 98.3 92 20 132/77 96 08/25/16 12:00 Room Air 08/25/16 00:20 2.0 Intake and Output 08/27/16 08/27/16 08/28/16 15:00 23:00 07:00 Intake Total 960 ml 1100 ml Output Total 400 ml Balance 560 ml 1100 ml Exam Constitutional: alert, oriented Head: normocephalic Neck: supple Respiratory: normal air movement Cardiovascular: nl pulses Gastrointestinal: non-tender, other (colostomy, surgical incision), soft Extremities: normal pulses Neurological: nl mental status Skin: nl turgor Results Result Diagram: 08/28/16 0440 08/28/16 0440 Results 24 hrs Laboratory Tests Test 08/28/16 04:40 White Blood Count 6.5 Red Blood Count 3.97 L Hemoglobin 11.9 L Hematocrit 34.9 L Mean Corpuscular Volume 87.9 Mean Corpuscular Hemoglobin 30.0 Mean Corpuscular Hemoglobin Concent 34.1 Red Cell Distribution Width 13.1 Platelet Count 238 Mean Platelet Volume 9.3 Neutrophils % 51.1 Lymphocytes % 29.5 Monocytes % 8.6 Eosinophils % 10.0 H Basophils % 0.5 Nucleated Red Blood Cells % 0.0 Neutrophils # 3.3 Lymphocytes # 1.9 Monocytes # 0.6 Eosinophils # 0.7 H Basophils # 0.0 Nucleated Red Blood Cells # 0.0 Sodium Level 136 Potassium Level 3.9 Chloride Level 104 Carbon Dioxide Level 25 Anion Gap 11 Blood Urea Nitrogen 14 Creatinine 1.02 Glucose Level 91 Calcium Level 8.5 Medications Medications Current Medications Clonazepam (Klonopin) 0.5 mg BID PO Last administered on 08/28/16 09:06; Admin Dose 0.5 MG; Start 08/24/16 at 21:00 Fluoxetine HCl (Prozac) 40 mg DAILY PO Last administered on 08/28/16 09:05; Admin Dose 40 MG; Start 08/25/16 at 09:00 Quetiapine Fumarate (Seroquel) 300 mg HS PO Last administered on 08/27/16 20: 45; Admin Dose 300 MG; Start 08/24/16 at 21:00 Diphenhydramine HCl (Benadryl) 25 mg Q6H PRN PO ITCHING Last administered on 10:36; Admin Dose 25 MG; Start 08/24/16 at 18:30 Gabapentin (Neurontin) 300 mg QID PO Last administered on 08/28/16 09:06; Admin Dose 300 MG; Start 08/24/16 at 21:00 Ondansetron HCl (Zofran Inj) 4 mg Q6H PRN IV NAUSEA AND/OR VOMITING Last administered on 08/26/16 22:44; Admin Dose 4 MG; Start 08/25/16 at 15:00 Hydromorphone HCl (Dilaudid) 1 mg Q3 PRN IV PAIN Last administered on 12:56; Admin Dose 1 MG; Start 08/25/16 at 22:00 Acetaminophen/ Hydrocodone Bitart ([place] (10/325)) 1 tab Q6H PRN PO PAIN Last administered on 08/28/16 09:06; Admin Dose 1 TAB; Start 08/27/16 at 09:30 ROSALIND ESPINAL Aug 28, 2016 13:50 ROSALIND ESPINAL Aug 28, 2016 13:50
[2016-08-28] MEDS: ONDANSETRON 4 MG INJ IV PRN ×2 (15:22→21:23)
[2016-08-28] MEDS: QUETIAPINE 100 MG TAB PO SCH (20:40)
[2016-08-28 21:20] VITALS: BP 148/94; RESP 19
[2016-08-29] MEDS: HYDROmorphONE 1 MG/ML SYG IV PRN ×5 (00:01→14:15)
[2016-08-29] MEDS: HYDROCODONE/APAP (10/325) TAB PO PRN ×3 (03:22→15:57)
[2016-08-29] MEDS: ONDANSETRON 4 MG INJ IV PRN (03:22)
[2016-08-29 05:25] LABS: ADD SCAN DIFF NO
[2016-08-29 05:34] LABS: BASOPHILS % 0.7 % (0.0-2.0); EOSINOPHILS # 0.6 10^3/ul (0.0-0.5); EOSINOPHILS % 10.7 % (0.0-7.0); HEMATOCRIT 36.7 % (42.0-52.0); LYMPHOCYTES # 1.6 10^3/ul (0.8-2.9); LYMPHOCYTES % 27.5 % (15.0-51.0); MEAN CORPUSCULAR HEMOGLOBIN 29.1 pg (29.0-33.0); MEAN CORPUSCULAR HGB CONC 32.7 g/dl (32.0-37.0); MEAN CORPUSCULAR VOLUME 88.9 fl (82.0-101.0); MEAN PLATELET VOLUME 9.5 fl (7.4-10.4); MONOCYTE # 0.6 10^3/ul (0.3-0.9); MONOCYTES % 10.2 % (0.0-11.0); NEUTROPHILS % 50.4 % (39.0-77.0); PLATELET COUNT 261 10^3/UL (140-415); RED BLOOD COUNT 4.13 10^6/ul (4.70-6.10); RED CELL DISTRIBUTION WIDTH 13.2 % (11.5-14.5)
[2016-08-29 06:18] LABS: CALCIUM 9.1 mg/dl (8.4-10.2); CREATININE 1.11 mg/dl (0.61-1.24); POTASSIUM 4.1 mmol/L (3.5-5.1)
[2016-08-29 07:44] VITALS: BP 136/78; RESP 19
[2016-08-29] MEDS: clonAZEPAM 0.5 MG TAB PO SCH (09:08)
[2016-08-29] MEDS: GABAPENTIN 300 MG CAP PO SCH ×3 (09:08→17:00)
[2016-08-29] MEDS: FLUOXETINE 20 MG CAP PO SCH (09:08)
[2016-08-29] MEDS ORDERED: HYDR-906 PO (15:51)
--- NOTE | 2016-08-29 18:50 | DS ---
Date/Time of Note Date/Time of Note DATE: 08/29/16 TIME: 18:47 Discharge Summary Admission/Discharge Info Admit Date/Time Aug 24, 2016 at 12:40 Discharge Date/Time Aug 29, 2016 at 17:20 Discharge Diagnosis 1. Parastomal hernia and incarcerated incisional hernia, status post open incarcerated incisional hernia repair and opened parastomal hernia repair. 2. History of ulcerative colitis status post exploratory laparotomy and lysis of adhesions, completion of proctectomy and end ileostomy. 3. Depression. Continue Prozac. Patient Condition: Good Hospital Course 1. Parastomal hernia and incarcerated incisional hernia, status post open incarcerated incisional hernia repair and opened parastomal hernia repair by Dr. Duran. Patient was given [place] and Dilaudid for pain. Patient was able to tolerate regular diet and had ileostomy output. 2. History of ulcerative colitis status post exploratory laparotomy and lysis of adhesions, completion of proctectomy and end ileostomy. 3. Depression. Continue Prozac. Home Meds Active Scripts Hydrocodone/Acetaminophen ([place] 5-325 Tablet) 1 Each Tablet, 1 EACH PO Q4, #40 TAB Prov:CURTIS ESPINALLANA 08/29/16 Reported Medications Quetiapine Fumarate* (Seroquel*) 300 Mg Tablet, 300 MG PO HS, TAB 08/24/16 Clonazepam* (Clonazepam*) 0.5 Mg Tablet, 0.5 MG PO BID, TAB 08/24/16 Gabapentin* (Gabapentin*) 600 Mg Tablet, 600 MG PO QID, #60 TAB 08/24/16 Gabapentin* (Gabapentin*) 300 Mg Capsule, 300 MG PO BID, #60 CAP 08/24/16 Fluoxetine Hcl* (Fluoxetine Hcl*) 40 Mg Capsule, 40 MG PO DAILY, CAP 08/24/16 Quetiapine Fumarate* (Seroquel*) 300 Mg Tablet, 300 MG PO HS, TAB 02/21/15 Discontinued Reported Medications Mirtazapine* (Mirtazapine*) 15 Mg Tablet, 15 MG PO DAILY, #30 08/10/15 Citalopram Hydrobromide* (Celexa*) 20 Mg Tablet, 20 MG PO DAILY, #30 TAB 03/10/15 Sertraline Hcl* (Zoloft*) 100 Mg Tablet, 100 MG PO BID, #30 TAB 02/21/15 Discontinued Scripts Hydrocodone Bit-Acetaminophen* ([place]*) 5-325 Mg Tab, 1 TAB PO Q6 Y for PAIN, # 20 TAB Prov:KIA DAY 08/17/15 Pantoprazole* (Protonix*) 40 Mg Tablet.dr, 40 MG PO DAILY, #20 TAB Prov:JONGEKIA WORTHINGTON 08/17/15 Docusate Sodium* (Colace*) 100 Mg Capsule, 100 MG PO BID, #30 CAP Prov:KIA DAY 08/17/15 Follow-up Plan Follow-up with Dr. Duran in 1 -2 weeks Primary Care Provider Not On Staff Doctor Pending Labs Laboratory Tests Test 08/29/16 04:35 White Blood Count 6.010^3/ul (4.8-10.8) Red Blood Count 4.1310^6/ul (4.70-6.10) Hemoglobin 12.0g/dl (14.0-18.0) Hematocrit 36.7% (42.0-52.0) Mean Corpuscular Volume 88.9fl (82.0-101.0) Mean Corpuscular Hemoglobin 29.1pg (29.0-33.0) Mean Corpuscular Hemoglobin Concent 32.7g/dl (32.0-37.0) Red Cell Distribution Width 13.2% (11.5-14.5) Platelet Count 30934^3/UL (140-415) Mean Platelet Volume 9.5fl (7.4-10.4) Neutrophils % 50.4% (39.0-77.0) Lymphocytes % 27.5% (15.0-51.0) Monocytes % 10.2% (0.0-11.0) Eosinophils % 10.7% (0.0-7.0) Basophils % 0.7% (0.0-2.0) Nucleated Red Blood Cells % 0.0/100WBC (0.0-0.0) Neutrophils # 3.010^3/ul (1.6-7.5) Lymphocytes # 1.610^3/ul (0.8-2.9) Monocytes # 0.610^3/ul (0.3-0.9) Eosinophils # 0.610^3/ul (0.0-0.5) Basophils # 0.010^3/ul (0.0-0.1) Nucleated Red Blood Cells # 0.010^3/ul (0.0-0.0) Sodium Level 136mmol/L (135-144) Potassium Level 4.1mmol/L (3.5-5.1) Chloride Level 104mmol/L (97-110) Carbon Dioxide Level 24mmol/L (21-31) Anion Gap 12 (8-16) Blood Urea Nitrogen 14mg/dl (7-20) Creatinine 1.11mg/dl (0.61-1.24) Glucose Level 118mg/dl (70-220) Calcium Level 9.1mg/dl (8.4-10.2) ROSALIND ESPINAL Aug 29, 2016 18:49
== END 2016-08-29 17:20 | disposition home or self-care (01) | DRG 330 ==
LOC: INTOOBSV 12:40 → REC 12:40 → OBSVTOIN 12:40 → EDSTATUS 13:30 → INTOOBSV 16:36 → OBSVTOIN 16:36 → MS1 17:40
PROVIDERS: ADMIT Internal Medicine; ATTEND Surgery
PROC: 0WUF0JZ Supplement Abdominal Wall with Synthetic Substitute, Open Approach (ICD-10-PCS; 2016-08-24)
PROC: 0WUF0JZ Supplement Abdominal Wall with Synthetic Substitute, Open Approach (ICD-10-PCS; 2016-08-24)
PROC: 0DBB0ZZ Excision of Ileum, Open Approach (ICD-10-PCS; principal; 2016-08-24 14:00)
DX: K43.5 Parastomal hernia without obstruction or gangrene (principal); K43.0 Incisional hernia with obstruction, without gangrene; F32.9 Major depressive disorder, single episode, unspecified; Z93.2 Ileostomy status; Z90.49 Acquired absence of other specified parts of digestive tract; Z87.19 Personal history of other diseases of the digestive system
CPT/HCPCS: 80048; 80053; 85025; C1781; J0690; J1170; J1885; J2175; J2250; J2270; J2405; J2710; J2765; J2795; J3010; J3480; J7999; Q4166

== ENCOUNTER 2017-09-02 10:30 | Inpatient (IN) | END 2017-09-10 18:10 | disposition home or self-care (01) | DRG 331 ==

== ENCOUNTER 2018-05-06 13:20 | Emergency (ER) | payer OTHER ==
[~2018-05-06] VITALS: Ht 170.2 cm; Wt 100.0 kg
[~2018-05-06 13:20] MED LIST changes: -CITA20TA11 PO; +CLON0.5T14 PO; -DOCU-144 PO; +GABA-528 PO; -HYDR-3498 PO; +HYDR-4011 PO; -MIRT15TA5 PO; -PANT40TA3 PO; -QUET300T13 PO; -SERT100T PO; +TRA100 PO; +VENL225T PO
[2018-05-06 13:23] VITALS: BP 148/90; PULSE 98; RESP 16; Ht 170.2 cm; Wt 100.0 kg
--- NOTE | 2018-05-06 13:29 | ERD ---
ER Documentation Chief Complaint Chief Complaint PT IN NEED OF COLOSTOMY BAGS HPI Patient is here because he needs new colostomy bags he has no further complaints whatsoever he does needs bags only he has good output in his bags no problems with diarrhea constipation fever abdominal pain nausea vomiting no erythema to the skin etc. ROS All systems reviewed and are negative except as per history of present illness. Medications Home Meds Active Scripts Clonazepam* (Clonazepam*) 0.5 Mg Tablet, 0.5 MG PO BID for 30 Days, TAB Prov:ROSALIND ESPINAL 09/10/17 Hydrocodone/Acetaminophen ([place] 5-325 Tablet) 1 Each Tablet, 1 EACH PO Q4, #40 TAB Prov:ROSALIND ESPINAL 08/29/16 Reported Medications Venlafaxine Hcl* (Venlafaxine Hcl ER*) 225 Mg Tab.er.24, 225 MG PO DAILY, TAB.SA 09/02/17 Gabapentin* (Gabapentin*) 800 Mg Tablet, 800 MG PO TID, #90 TAB 09/02/17 Trazodone Hcl* (Trazodone Hcl*) 100 Mg Tablet, 200 MG PO QHS, #30 TAB 09/02/17 Allergies Allergies: Coded Allergies: No Known Allergy (Unverified , 08/24/16) PMhx/Soc History of Surgery: Yes (RT INGUINAL HERNIA,COLON REMOVAL, ILEOSTOMY, SCAR TISSUE REMOVED 2011) Anesthesia Reaction: No Hx Neurological Disorder: No Hx Respiratory Disorders: Yes (ASTHMA A KID) Hx Cardiac Disorders: No Hx Psychiatric Problems: No Hx Miscellaneous Medical Probl: No Hx Alcohol Use: No Hx Substance Use: No Hx Tobacco Use: No FmHx Family History: No coronary disease Physical Exam Vitals Vital Signs Date Temp Pulse Resp B/P (MAP) Pulse Ox O2 O2 Flow FiO2 Time Delivery Rate 05/06/18 97.9 98 16 148/90 97 13:23 (109) Physical Exam Const: No acute distress Head: Atraumatic Eyes: Normal Conjunctiva ENT: Normal External Ears, Nose and Mouth. Neck: Full range of motion. No meningismus. Resp: Clear to auscultation bilaterally Cardio: Regular rate and rhythm, no murmurs Abd: Soft, non tender, non distended. Normal bowel sounds, colostomy bag intact no signs of infection or excoriations of skin Skin: No petechiae or rashes Back: No midline or flank tenderness Ext: No cyanosis, or edema Neur: Awake and alert Psych: Normal Mood and Affect Procedures/MDM Patient will be given a few colostomy bags from the ER and discharged home Departure Diagnosis: Primary Impression: Colostomy in place Condition: Stable ASCENCION GRECO DO May 06, 2018 13:29
== END 2018-05-06 13:58 | disposition home or self-care (01) ==
LOC: E/R 13:20
DX: Z93.3 Colostomy status (principal); J45.909 Unspecified asthma, uncomplicated
CPT/HCPCS: Z7502; Z7610; 99282

== ENCOUNTER 2018-07-29 14:18 | Emergency (ER) | payer OTHER ==
[~2018-07-29] VITALS: Wt 90.0 kg
[2018-07-29 14:23] VITALS: BP 148/90; PULSE 89; RESP 18
--- NOTE | 2018-07-29 15:55 | ERD ---
ER Documentation Chief Complaint Chief Complaint WANTS COLOSTOMY BAG HPI 37-year-old male presents requesting a change of colostomy bag and a refill until he can straighten out some insurance issues. He has a history of enterostomy for several years due to ulcerative colitis. Denies any fevers, vomiting. He has some skin irritation and some bleeding from the skin. Denies any dark stools, melena or bleeding from the stoma itself. Surgeon is Dr. Duran. ROS All systems reviewed and are negative except as per history of present illness. Medications Home Meds Active Scripts Clonazepam* (Clonazepam*) 0.5 Mg Tablet, 0.5 MG PO BID for 30 Days, TAB Prov:ROSALIND ESPINAL 09/10/17 Hydrocodone/Acetaminophen ([place] 5-325 Tablet) 1 Each Tablet, 1 EACH PO Q4, #40 TAB Prov:ROSALIND ESPINAL 08/29/16 Reported Medications Venlafaxine Hcl* (Venlafaxine Hcl ER*) 225 Mg Tab.er.24, 225 MG PO DAILY, TAB.SA 09/02/17 Gabapentin* (Gabapentin*) 800 Mg Tablet, 800 MG PO TID, #90 TAB 09/02/17 Trazodone Hcl* (Trazodone Hcl*) 100 Mg Tablet, 200 MG PO QHS, #30 TAB 09/02/17 Allergies Allergies: Coded Allergies: No Known Allergy (Unverified , 08/24/16) PMhx/Soc History of Surgery: Yes (RT INGUINAL HERNIA,COLON REMOVAL, ILEOSTOMY, SCAR TISSUE REMOVED 2011) Anesthesia Reaction: No Hx Neurological Disorder: No Hx Respiratory Disorders: Yes (ASTHMA A KID) Hx Cardiac Disorders: No Hx Psychiatric Problems: No Hx Miscellaneous Medical Probl: No Hx Alcohol Use: No Hx Substance Use: No Hx Tobacco Use: No Smoking Status: Never smoker FmHx Family History: No diabetes, No coronary disease, No other Physical Exam Vitals Vital Signs Date Temp Pulse Resp B/P (MAP) Pulse Ox O2 O2 Flow FiO2 Time Delivery Rate 07/29/18 97.8 89 18 148/90 99 14:23 (109) Physical Exam Const: No acute distress Head: Atraumatic Eyes: Normal Conjunctiva ENT: Normal External Ears, Nose and Mouth. Neck: Full range of motion. No meningismus. Resp: Clear to auscultation bilaterally Cardio: Regular rate and rhythm, no murmurs Abd: Soft, non tender, non distended. Normal bowel sounds. [place] stoma. Surr ounding skin irritation without erythema, induration. Skin: No petechiae or rashes Back: No midline or flank tenderness Ext: No cyanosis, or edema Neur: Awake and alert Psych: Normal Mood and Affect Procedures/MDM Patient presents requesting a colostomy bag change. He was administered a few days supply until he can see his primary doctor. He is advised to see his surgeon for ongoing wound care or skin irritation or routine follow-up. He is advised to return for fevers, vomiting, redness, blood, new worsening symptoms with primary care doctor and surgeon as directed. There is no current signs or symptoms of SI or Stratter[place], significant abdominal pain, identifiable complications. The patient was stable with no new complaints during the ER course. Clinically, there is no current evidence to suggest meningitis, sepsis, acute abdomen, pneumonia, stroke, acute coronary syndrome, pulmonary embolism, aortic dissection or any other emergent condition appearing to require further evaluation or hospitalization. Patient counseled regarding my diagnostic impression and care plan. Prior to discharge all questions answered. Pt agrees with treatment plan and understands strict return precautions. Pt is instructed to follow up with primary care provider within 24-48 hours. Precautionary instructions provided including instructions to return to the ER if not improving or for any worsening or changing symptoms or concerns. Disclaimer: Inadvertent spelling and grammatical errors are likely due to [employer]/dictation software use and do not reflect on the overall quality of patient care. Also, please note that the electronic time recorded on this note does not necessarily reflect the actual time of the patient encounter. Departure Diagnosis: Primary Impression: Colostomy care Condition: Stable Patient Instructions: Colostomy: Caring for Your Stoma Referrals: Michael DURAN Additional Instructions: Follow-up with primary doctor and Dr. Duran for ongoing treatment. Recheck for redness, fevers, vomiting, new worsening symptoms. NICOLAS CASTRO MD July 29, 2018 15:55
== END 2018-07-29 16:35 | disposition left against medical advice (07) ==
LOC: FTE 14:18
DX: K94.09 Other complications of colostomy (principal); J45.909 Unspecified asthma, uncomplicated
CPT/HCPCS: Z7502; Z7610; 99282